=== PATIENT | female | born 1995 | race Caucasian/White ===

== ENCOUNTER 2017-09-14 01:12 | Emergency (ER) | END 2017-09-14 04:20 | disposition home or self-care (01) ==

== ENCOUNTER 2017-09-16 20:36 | Emergency (ER) | END 2017-09-16 21:58 | disposition home or self-care (01) ==

== ENCOUNTER 2018-01-22 22:44 | Emergency (ER) | END 2018-01-23 02:39 | disposition home or self-care (01) ==

== ENCOUNTER 2018-01-27 18:49 | Emergency (ER) | END 2018-01-27 22:55 | disposition home or self-care (01) ==

== ENCOUNTER 2018-10-29 18:37 | Emergency (ER) | payer OTHER ==
[~2018-10-29] VITALS: Ht 162.6 cm; Wt 91.6 kg
[~2018-10-29 18:37] MED LIST: ACET500C5 PO; ALBU8.5H8 INH; AZIT250T PO; BACI28.34 TOP; CEPH-443 PO; CETI10CA PO; GUAI120S26 PO; HYDR-4011 PO; IBUP-1542 PO; PRED20TA PO
[2018-10-29 18:43] VITALS: Ht 162.6 cm; Wt 91.6 kg
[2018-10-29] MEDS ORDERED: LIDOCAINE/MYLANTA 40 ML BTL PO ONE (19:30)
[2018-10-29] MEDS ORDERED: UDMYL PO (20:28)
--- NOTE | 2018-10-29 20:30 | ERD ---
ER Documentation Chief Complaint Chief Complaint C/O GENERALIZED AP X2 WEEKS ROS All systems reviewed and are negative except as per history of present illness. Medications Home Meds Active Scripts Magaldrate/Simethicone* (Mag-Al Plus Suspension*) 30 Ml Oral.susp, 30 ML PO Q6H PRN for GASTROINTESTINAL UPSET for 7 Days, #1 BOTTLE Prov:ANAHI CHAVARRIA DO 10/29/18 Bacitracin* (Bacitracin Zinc Oint*) 28.35 Gm Oint, 1 APPLIC TOP BID, #1 TUB APPLI TO Prov:NJ HEREDIA PA-C 01/27/18 Hydrocodone/Acetaminophen (Pearson 5-325 Tablet) 1 Each Tablet, 1 TAB PO Q6H PRN for PAIN, #12 TAB Prov:GLENNY MACDONALD MD 01/23/18 Cephalexin* (Keflex*) 500 Mg Capsule, 500 MG PO QID for 7 Days, CAP Prov:GLENNY MACDONALD MD 01/23/18 Azithromycin* (Zithromax*) 250 Mg Tablet, 250 MG PO .LAMAR DIRECTED, #6 TAB TAKE 500 MG (2 TABS) THE FIRST DAY THEN 250 MG (1 TAB) DAYS 2-5 Prov:SANDRA MCCORMICK PA-C 09/16/17 Acetaminophen* (Tylophen*) 500 Mg Capsule, 1 CAP PO Q6H PRN for PAIN AND OR CAMI VATED TEMP, #20 CAP Prov:SREEKANTH STOCK NP 09/14/17 Cetirizine Hcl* (Zyrtec*) 10 Mg Capsule, 10 MG PO DAILY, #30 TAB.CHEW Prov:SREEKANTH STOCK NP 09/14/17 Prednisone* (Prednisone*) 20 Mg Tab, 60 MG PO DAILY for 5 Days, TAB Prov:SREEKANTH STOCK NP 09/14/17 Ibuprofen* (Motrin*) 600 Mg Tab, 600 MG PO Q6H PRN for PAIN AND OR ELEVATED TEMP, #30 TAB Prov:SREEKANTH STOCK NP 09/14/17 Rfsvkutheit-D-Cfjhndprfx Hb* (Guaifenesin* DM Syrup) 120 Ml Syrup, 10 ML PO Q4H PRN for COUGH, #120 ML Prov:SREEKANTH STOCK JOSE Gottlieb [employer] 09/14/17 Albuterol Sulfate* (Proair HFA*) 8.5 Gm Hfa.aer.ad, 2 PUFF INH Q4H PRN for WHEEZING AND SOB, #1 INHALER Prov:SREEKANTH STOCKSai [employer] 09/14/17 Allergies Allergies: Coded Allergies: No Known Allergy (Unverified , 01/27/18) PMhx/Soc Medical and Surgical Hx: pt denies Surgical Hx Hx Respiratory Disorders: Yes (BRONCHITIS) Hx Alcohol Use: Yes (SOCIAL) Hx Substance Use: Yes (MARIJUANA) Hx Tobacco Use: No Smoking Status: Never smoker Physical Exam Vitals Vital Signs Date Temp Pulse Resp B/P (MAP) Pulse Ox O2 O2 Flow FiO2 Time Delivery Rate 10/29/18 98.6 75 18 109/59 100 Room Air 20:45 (76) 10/29/18 99.7 71 18 148/76 100 18:43 (100) Physical Exam Const: No acute distress Head: Atraumatic Eyes: Normal Conjunctiva ENT: Normal External Ears, Nose and Mouth. Neck: Full range of motion. No meningismus. Resp: Clear to auscultation bilaterally Cardio: Regular rate and rhythm, no murmurs Abd: Soft, non tender, non distended. Normal bowel sounds Skin: No petechiae or rashes Back: No midline or flank tenderness Ext: No cyanosis, or edema Neur: Awake and alert Psych: Normal Mood and Affect Result Diagram: 10/29/18192310/29/181940 Results 24 hrs Laboratory Tests Test 10/29/18 19:24 10/29/18 19:41 10/29/18 19:55 White Blood Count 8.9 10^3/ul Red Blood Count 4.65 10^6/ul Hemoglobin 13.0 g/dl Hematocrit 41.3 % Mean Corpuscular Volume 88.8 fl Mean Corpuscular Hemoglobin 28.0 pg Mean Corpuscular 31.5 g/dl Hemoglobin Concent Red Cell Distribution Width 12.4 % Platelet Count 291 10^3/UL Mean Platelet Volume 11.2 fl Immature Granulocytes % 0.400 % Neutrophils % 62.3 % Lymphocytes % 28.3 % Monocytes % 5.7 % Eosinophils % 2.6 % Basophils % 0.7 % Nucleated Red Blood Cells % 0.0 /100WBC Immature Granulocytes # 0.040 10^3/ul Neutrophils # 5.5 10^3/ul Lymphocytes # 2.5 10^3/ul Monocytes # 0.5 10^3/ul Eosinophils # 0.2 10^3/ul Basophils # 0.1 10^3/ul Nucleated Red Blood Cells # 0.0 10^3/ul Urine Color YELLOW Urine Clarity CLEAR Urine pH 5.0 Urine Specific Rice 1.017 Urine Ketones NEGATIVE mg/dL Urine Nitrite NEGATIVE mg/dL Urine Bilirubin NEGATIVE mg/dL Urine Urobilinogen NEGATIVE mg/dL Urine Leukocyte Esterase NEGATIVE Raheem/ul Urine Hemoglobin NEGATIVE mg/dL Urine Glucose NEGATIVE mg/dL Urine Total Protein NEGATIVE mg/dl Sodium Level 141 mmol/L Potassium Level 3.9 mmol/L Chloride Level 104 mmol/L Carbon Dioxide Level 27 mmol/L Anion Gap 10 Blood Urea Nitrogen 7 mg/dl Creatinine 0.49 mg/dl Est Glomerular Filtrat > 60 mL/min Rate mL/min Glucose Level 90 mg/dl Calcium Level 9.7 mg/dl Total Bilirubin 0.3 mg/dl Direct Bilirubin 0.00 mg/dl Indirect Bilirubin 0.3 mg/dl Aspartate Amino 20 IU/L Transf (AST/SGOT) Alanine 14 IU/L Aminotransferase (ALT/SGPT) Alkaline Phosphatase 99 IU/L Total Protein 8.4 g/dl Albumin 4.8 g/dl Globulin 3.60 g/dl Albumin/Globulin Ratio 1.33 Lipase 35 U/L POC Beta HCG, Qualitative NEGATIVE Current Medications Medications Dose Sig/Cathie Start Time Status Last (Trade) Ordered Route PRN Stop Time Admin Dose Reason Admin 40 ml ONCE ONCE 10/29/18 DC 10/29/18 Miscellaneous PO 19:30 19:35 Medication 10/29/18 19:31 (Gi Cocktail (2)) Departure Diagnosis: Primary Impression: Abdominal pain Abdominal location: periumbilical Qualified Codes: R10.33 - Periumbilical pain Condition: Fair Patient Instructions: Abdominal Pain Referrals: [facility] YOU HAVE RECEIVED A MEDICAL SCREENING EXAM AND THE RESULTS INDICATE THAT YOU DO NOT HAVE A CONDITION THAT REQUIRES URGENT TREATMENT IN THE EMERGENCY DEPARTMENT. FURTHER EVALUATION AND TREATMENT OF YOUR CONDITION CAN WAIT UNTIL YOU ARE SEEN IN YOUR DOCTORS OFFICE WITHIN THE NEXT 1-2 DAYS. IT IS YOUR RESPONSIBILITY TO MAKE AN APPOINTMENT FOR FOLOW-UP CARE. IF YOU HAVE A PRIMARY DOCTOR --you should call your primary doctor and schedule an appointment IF YOU DO NOT HAVE A PRIMARY DOCTOR YOU CAN CALL OUR PHYSICIAN REFERRAL HOTLINE AT IF YOU CAN NOT AFFORD TO SEE A PHYSICIAN YOU CAN CHOSE FROM THE FOLLOWING [facility] [address] [facility] [address] [facility] [facility] [address] [facility] [address] [facility]. [facility] [address] [facility]. [facility]. [address] Additional Instructions: Call your primary care doctor TOMORROW for an appointment during the next 1-2 days.See the doctor sooner or return here if your condition worsens before your appointment time. ANAHI CHAVARRIA DO Oct 29, 2018 20:30
[2018-10-29 20:45] VITALS: BP 109/59; PULSE 75; RESP 18
== END 2018-10-29 20:45 | disposition home or self-care (01) ==
LOC: FTE 18:37
DX: R10.33 Periumbilical pain (principal)
CPT/HCPCS: 36415; 80053; 81003; 81025; 83690; 85025; Z7502; Z7610; 99283